=== PATIENT | male | born 1955 | race Caucasian/White ===

== ENCOUNTER 2017-02-13 17:00 | Inpatient (IN) | payer MEDICAID, OTHER ==
[~2017-02-13] VITALS: Ht 167.6 cm; Wt 68.7 kg
[~2017-02-13 17:00] MED LIST: IBUP-2070 PO; RISP3 PO; TRAZ-147 PO; VIST50 PO
[2017-02-13 18:20] LABS: ANION GAP 4 mmol/L (8-16); CARBON DIOXIDE 30 mmol/L (22-29); CHLORIDE 101 mmol/L (98-107); CREATININE 1.05 mg/dL (0.60-1.30); POTASSIUM 3.9 mmol/L (3.5-5.1); SODIUM SERUM 135 mmol/L (136-145); UREA NITROGEN, BLOOD 16 mg/dL (7-18)
[2017-02-13 18:21] LABS: CALCIUM, TOTAL 8.7 mg/dL (8.8-10.5); GLOMERULAR FILTR. RATE CALC > 60 mL/min (>60)
[2017-02-13 18:26] LABS: ALANINE AMINOTRANSFERASE 41 U/L (12-78); ALBUMIN 3.5 g/dL (3.4-5.0); ASPARTATE AMINOTRANSFERASE 40 U/L (15-37); BILIRUBIN,TOTAL 0.2 mg/dL (0.1-1.0)
[2017-02-13] MEDS ORDERED: LORazepam 2 MG TABLET PO PRN (18:30)
[2017-02-13] MEDS ORDERED: ZOLPIDEM TARTRATE 10 MG TABLET PO PRN (18:30)
[2017-02-13] MEDS ORDERED: FluPHENAZine HCL 5 MG TABLET PO PRN (18:30)
[2017-02-13 18:34] LABS: BASOPHILS % (AUTO) 0.5 % (0.0-2.0); EOSINOPHILS % (AUTO) 6.8 % (1.0-6.0); HEMATOCRIT 39.6 % (41-53); HEMOGLOBIN 13.7 g/dL (13.5-17.5); LYMPHOCYTES # (AUTO) 1.9 K/uL (1.0-4.8); LYMPHOCYTES % (AUTO) 32.9 % (22.0-44.0); MEAN CORPUSCULAR HEMOGLOBIN 30.4 pg (26.0-34.0); MEAN CORPUSCULAR HGB CONC 34.7 G/dL (31.0-37.0); MEAN CORPUSCULAR VOLUME 88 fL (80-100); MONOCYTES # (AUTO) 0.5 K/uL (0.1-1.0); MONOCYTES % (AUTO) 9.2 % (2.0-9.0); NEUTROPHILS % (AUTO) 50.6 % (40.0-70.0); PLATELET COUNT (AUTO) 261 K/uL (150-450); RED BLOOD CELL COUNT(AUTO) 4.51 MIL/uL (4.50-5.90); RED CELL DISTRIBUTION WIDTH 14.1 % (11.5-14.5); WHITE BLOOD COUNT (AUTO) 5.9 K/uL (4.5-11.0)
[2017-02-13 19:02] LABS: ADD UA MICROSCOPIC NO; APPEARANCE,URINE CLEAR (CLEAR); GLUCOSE, URINE (UA) NEGATIVE (NEGATIVE); KETONES,URINE NEGATIVE (NEGATIVE); LEUKOCYTE ESTERASE ,URINE NEGATIVE (NEGATIVE); OCCULT BLOOD,URINE NEGATIVE (NEGATIVE); PROTEIN,URINE NEGATIVE (NEGATIVE)
[2017-02-13 19:07] LABS: CHOL/HDL RATIO 3.1 (4.2-7.3); THYROID STIMULATING HORMONE 0.93 uIU/mL (0.36-3.74)
[2017-02-13 20:05] VITALS: BP 137/88
[2017-02-13] MEDS ORDERED: PNEUMOCOCCAL VACCINE POLYVALENT 0.5 ML VIAL [PPSV23] IM ONE (20:30)
[2017-02-13] MEDS ORDERED: INFLUENZA VIRUS VACCINE QVS 2017-18 (3YR+)/PF 60 MCG/0.5 ML SYRINGE IM ONE (20:30)
[2017-02-13] MEDS: TraZODone HCL 150 MG TABLET PO SCH (20:55)
[2017-02-13] MEDS: RisperiDONE 3 MG TABLET PO SCH (20:55)
[2017-02-14 08:14] VITALS: BP 100/60
[2017-02-14] MEDS: RisperiDONE 3 MG TABLET PO SCH ×2 (09:00→16:41)
[2017-02-14] MEDS ORDERED: PETROLATUM,WHITE 71 GM JELLY TP PRN (10:00)
[2017-02-14] MEDS ORDERED: IBUPROFEN 600 MG TABLET PO PRN (10:00)
[2017-02-14] MEDS ORDERED: CloNIDine HCL 0.1 MG TABLET PO PRN (10:00)
[2017-02-14] MEDS ORDERED: BACITRACIN 28.4 GM OINTMENT TP PRN (10:00)
[2017-02-14] MEDS ORDERED: ALBUTEROL SULFATE HFA 90 MCG/PUFF 8 GM INHALER IH PRN (10:00)
[2017-02-14] MEDS ORDERED: ACETAMINOPHEN 325 MG TABLET PO PRN (10:00)
[2017-02-14] MEDS ORDERED: MAG HYDROX/AL HYDROX/SIMETH ES 30 ML SUSPENSION UDCUP PO PRN (10:00)
[2017-02-14] MEDS ORDERED: BENZOCAINE/MENTHOL LOZENGE MM PRN (10:00)
[2017-02-14] MEDS ORDERED: MAGNESIUM HYDROXIDE SUSPENSION 30 ML UDCUP PO PRN (10:00)
[2017-02-14] MEDS ORDERED: LOPERAMIDE HCL 2 MG CAPSULE PO PRN (10:00)
[2017-02-14] MEDS ORDERED: ONDANSETRON HCL 4 MG TABLET PO PRN (10:00)
[2017-02-14 18:09] VITALS: BP 104/67
[2017-02-14] MEDS: TraZODone HCL 150 MG TABLET PO SCH (20:41)
[2017-02-15 08:37] VITALS: BP 98/59
[2017-02-15] MEDS: RisperiDONE 3 MG TABLET PO SCH (09:00)
[2017-02-15] MEDS ORDERED: SODIUM CHLORIDE 1 GM TABLET PO ONE (10:45)
[2017-02-15 16:38] VITALS: BP 105/69
[2017-02-15] MEDS: QUEtiapine FUMARATE 300 MG TABLET PO SCH (20:33)
[2017-02-16 08:33] LABS: CALCIUM, TOTAL 8.6 mg/dL (8.8-10.5); CREATININE 1.31 mg/dL (0.60-1.30); POTASSIUM 4.6 mmol/L (3.5-5.1)
[2017-02-16 09:02] VITALS: BP 105/64
[2017-02-16] MEDS: CHOLECALCIFEROL (VIT D3) 1,000 UNITS TABLET PO SCH (10:47)
[2017-02-16 16:15] VITALS: BP 103/64
[2017-02-16] MEDS: QUEtiapine FUMARATE 300 MG TABLET PO SCH (20:09)
[2017-02-17 00:04] VITALS: BP 101/63
[2017-02-17 10:22] VITALS: BP 97/65
[2017-02-17] MEDS: CHOLECALCIFEROL (VIT D3) 1,000 UNITS TABLET PO SCH (10:23)
[2017-02-17 16:17] VITALS: BP 113/70
[2017-02-17] MEDS: QUEtiapine FUMARATE 300 MG TABLET PO SCH (20:37)
[2017-02-18 04:07] VITALS: BP 106/63
[2017-02-18] MEDS: CHOLECALCIFEROL (VIT D3) 1,000 UNITS TABLET PO SCH (08:54)
[2017-02-18 16:55] VITALS: BP 116/69
[2017-02-18] MEDS: QUEtiapine FUMARATE 300 MG TABLET PO SCH (20:04)
[2017-02-19 06:28] VITALS: BP 103/60
[2017-02-19 08:36] VITALS: BP 134/77
[2017-02-19] MEDS: CHOLECALCIFEROL (VIT D3) 1,000 UNITS TABLET PO SCH (09:03)
[2017-02-19 09:29] LABS: ANION GAP 7 mmol/L (8-16); CARBON DIOXIDE 29 mmol/L (22-29); CHLORIDE 99 mmol/L (98-107); CREATININE 0.97 mg/dL (0.60-1.30); GLOMERULAR FILTR. RATE CALC > 60 mL/min (>60); POTASSIUM 4.6 mmol/L (3.5-5.1); SODIUM SERUM 135 mmol/L (136-145); UREA NITROGEN, BLOOD 22 mg/dL (7-18)
[2017-02-19 16:06] VITALS: BP 98/63
[2017-02-19] MEDS: QUEtiapine FUMARATE 300 MG TABLET PO SCH (20:59)
[2017-02-20 09:44] VITALS: BP 104/64
[2017-02-20] MEDS: CHOLECALCIFEROL (VIT D3) 1,000 UNITS TABLET PO SCH (10:17)
[2017-02-20] MEDS ORDERED: QUET100T PO (13:53)
[2017-02-20] MEDS ORDERED: CHOL10002 PO (13:54)
== END 2017-02-20 16:17 | disposition home or self-care (01) | DRG 750 ==
LOC: EMS 17:05 → B2S 19:13
PROVIDERS: ADMIT Psychiatry & Neurology Psychiatry; ATTEND Psychiatry & Neurology Psychiatry
DX: F25.9 Schizoaffective disorder, unspecified (principal); E87.1 Hypo-osmolality and hyponatremia; E83.51 Hypocalcemia; B18.2 Chronic viral hepatitis C; F17.200 Nicotine dependence, unspecified, uncomplicated; J44.9 Chronic obstructive pulmonary disease, unspecified; R45.850 Homicidal ideations; M19.90 Unspecified osteoarthritis, unspecified site; G47.00 Insomnia, unspecified; F15.90 Other stimulant use, unspecified, uncomplicated; R03.0 Elevated blood-pressure reading, without diagnosis of hypertension; Z71.6 Tobacco abuse counseling; Z88.8 Allergy status to other drugs, medicaments and biological substances; Z79.899 Other long term (current) drug therapy; Z59.0 Homelessness
CPT/HCPCS: 82306; 84295; 84439; 84443; 90471; 99285; G0480